=== PATIENT | female | born 1965 | race Caucasian/White ===

== ENCOUNTER 2016-09-21 10:14 | Emergency (ER) | payer MEDICAID, OTHER ==
[~2016-09-21] VITALS: Ht 162.6 cm; Wt 65.0 kg
[~2016-09-21 10:14] MED LIST: ALBUAER3 INH; ASPI325T PO; DEXA2TAB PO; GUAISYP7 PO; IPRA17I INH; IPRASOL INH; LORA10TA PO; VENTAER INH
[2016-09-21 10:16] VITALS: BP 138/68; PULSE 84; RESP 15; TEMP 97.8; O2SAT 96
--- NOTE | 2016-09-21 10:36 | PD ---
HPI . wants duoneb refills Chief Complaint: Medication Refill Request Time Seen by Provider: 10:35 Travel History International Travel<30 days: No Contact w/Intl Traveler<30days: No Traveled to known affect area: No History of Present Illness HPI 51-year-old female with COPD and asthma here requesting refills on her DuoNeb. She tells me that she recently ran out yesterday. She denies any present shortness of breath or coughing. However tells me if she goes home without this medication she knows that she is going to get sick. She denies any fever, chills, chest pain, shortness of breath or respiratory complaints. She is strictly here for refill on duonebs. PFSH Past Medical History Hx Anticoagulant Therapy: Yes (ASPIRIN DAILY) Asthma: Yes Autoimmune Disease: Yes (MTHFR-CLOTTING DISORDER) Blood Disorders: Yes (PT STS THE ABREVIATION IS (MTHFR) FOR HER CLOTTING CONDITION) Diminished Hearing: No Deep Vein Thrombosis: No GERD: Yes Respiratory: Yes (copd asthma) Menopausal: No : 6 Para: 4 Miscarriage: 1 Ovarian Cysts: Yes Tubal Ligation: Yes Past Surgical History Gynecologic Surgery: Yes (CERVICAL BIOPSY-NEG) Other Surgery: Yes (BENIGN TUMOR REMOVED FROM VOCAL CORDS.) Social History Alcohol Use: Yes (X3 PER YEAR) Tobacco Use: Yes (1/2 - 1 PPD) Substance Use: No Allergies-Medications (Allergen,Severity, Reaction): Coded Allergies: TETANUS/DIPHTHERIA TOXOID-ADSORBED (Verified Allergy, Severe, Shortness of Breath, 09/21/16) Uncoded Allergies: ENVIRONMENTAL (Allergy, Severe, 10/18/07) Reported Meds & Prescriptions Reported Meds & Active Scripts Active Duoneb (Ipratropium-Albuterol Neb) 0.5-2.5 Mg/3 Ml Neb 1 Nebule INH Q6HR NEB Atrovent HFA 12.9 GM Inh (Ipratropium [place]) 17 Mcg/Act Aer 2 Puff INH Q6HR PRN Proair Hfa 8.5 GM Inh (Albuterol Sulfate) 90 Mcg/Act Aer 2 Puff INH Q6H PRN 108 mcg/actuation Guaifenesin DM Liq (Guaifenesin-Dextromethorphan Liq) 10-100 Mg/5 Ml Liq 10 Ml PO Q4H PRN Dexamethasone 2 Mg Tab 2 Mg PO BID Reported Allergy (Loratadine) 10 Mg Tab 10 Mg PO DAILY Duoneb (Ipratropium-Albuterol Neb) 0.5-2.5 Mg/3 Ml Neb 1 Nebule INH DAILY Aspirin 325 Mg Tab 325 Mg PO DAILY Ventolin Hfa 18 GM Inh (Albuterol Sulfate) 90 Mcg/Act Aer 2 Puff INH Q4-6H PRN Review of Systems General / Constitutional: No: Fever Eyes: No: Visual changes HENT: No: Headaches Cardiovascular: No: Chest Pain or Discomfort Respiratory: No: Shortness of Breath Gastrointestinal: No: Abdominal Pain Genitourinary: No: Dysuria Musculoskeletal: No: Pain Skin: No Rash Neurologic: No: Weakness Psychiatric: No: Depression Endocrine: No: Polydipsia Hematologic/Lymphatic: No: Easy Bruising Physical Exam Narrative GENERAL: AAO x 3, no acute distress, Well-nourished, well-developed patient. SKIN: Warm and dry. No visible rashes or bruising. HEAD: Normocephalic and atraumatic. EYES: No scleral icterus. No injection or drainage. ENT: No nasal drainage noted. Mucous membranes pink. Airway patent. NECK: Supple, trachea midline. No JVD. CARDIOVASCULAR: Regular rate and rhythm without murmurs, gallops, or rubs. RESPIRATORY: Equally diminished breath sounds bilaterally. Very slight expiratory wheeze. No rhonchi or rales GASTROINTESTINAL: Visual inspection normal EXTREMITIES: No cyanosis or edema. BACK: Nontender without obvious deformity. No CVA tenderness. PSYCH: AAO x 3, normal affect. Data Data Last Documented VS Vital Signs Date Time Temp Pulse Resp B/P Pulse Ox O2 Delivery O2 Flow Rate FiO2 09/21/16 10:16 97.8 84 15 138/68 96 MDM Medical Decision Making Medical Screen Exam Complete: Yes Emergency Medical Condition: Yes Medical Record Reviewed: Yes Differential Diagnosis Medication refill, COPD, less likely COPD exacerbation Narrative Course 51-year-old female here requesting refills on her DuoNeb medication. She has no other complaints. I have provided her with a refill and recommend that she follow-up with her primary care provider for any further refills. Patient verbalized understanding of instructions, questions were answered, and thanked me for their care. I advised them if their condition worsens, please return to the nearest emergency room for further care. Diagnosis Primary Impression: COPD (chronic obstructive pulmonary disease) Qualified Code: J44.9 - Chronic obstructive pulmonary disease, unspecified COPD type Additional Impression: Medication refill Patient Instructions: General Instructions Additional Instructions: Please return to emergency department if your symptoms return or worsen. Follow up with your primary care provider. Take medications as prescribed. Please follow-up with your primary care provider for further refills. Med/Other Pt SpecificInfo: Prescription(s) given Scripts Ipratropium-Albuterol Neb (Duoneb)0.5-2.5 Mg/3 Ml Neb1 Nebule INH Q6HR NEB # 120 NEBULE Ref 0 Prov:Juan Diego Larkin MD 09/21/16 Disposition: 01 DISCHARGE HOME Condition: Stable Yi Ramos September 21, 2016 10:35
[2016-09-21] MEDS ORDERED: IPRASOL INH (10:41)
[2016-09-21] MEDS ORDERED: LORA-520 PO (10:46)
== END 2016-09-21 11:08 | disposition home or self-care (01) ==
LOC: NEPD 10:14
DX: J44.9 Chronic obstructive pulmonary disease, unspecified (principal); F17.200 Nicotine dependence, unspecified, uncomplicated; Z76.0 Encounter for issue of repeat prescription; Z79.82 Long term (current) use of aspirin; Z87.09 Personal history of other diseases of the respiratory system; Z86.2 Personal history of diseases of the blood and blood-forming organs and certain disorders involving the immune mechanism; Z87.19 Personal history of other diseases of the digestive system
CPT/HCPCS: 99281

== ENCOUNTER 2016-09-29 14:38 | Emergency (ER) | payer MEDICAID ==
[~2016-09-29 14:38] MED LIST changes: +LORA-520 PO; -LORA10TA PO
[2016-09-29 14:40] VITALS: BP 131/87; PULSE 88; RESP 16; TEMP 98.8; O2SAT 100
--- NOTE | 2016-09-29 15:18 | PD ---
Physical Exam Time Seen by Provider: 15:16 Narrative 51 y/o female here for evaluation of L ankle/foot pain. Twisted L ankle last night. Vital signs reviewed. Seen at triage desk. Awaiting bed placement. Data Data Last Documented VS Vital Signs Date Time Temp Pulse Resp B/P Pulse Ox O2 Delivery O2 Flow Rate FiO2 09/29/16 14:40 98.8 88 16 131/87 100 Room Air Orders Ankle, Complete ([id number]) (09/29/16 ) [facility] Medical Record Reviewed: Yes Supervised Visit with SAGE: Jesse Wells Sep 29, 2016 15:18
--- NOTE | 2016-09-29 15:47 | RADRPT ---
EXAM DATE/TIME: 09/29/2016 15:28 CORRECTION Corrected on: September 29, 2016; [facility] COMPARISON: No previous studies available for comparison. INDICATIONS : Left ankle pain, fell MEDICAL HISTORY : None. SURGICAL HISTORY : None. ENCOUNTER: Initial ACUITY: 2 days PAIN SCORE: 4/10 LOCATION: Left Left FINDINGS: There is soft tissue swelling lateral malleolus without fracture. Alignment is anatomic. CONCLUSION: Soft tissue swelling lateral malleolus with out fracture. Curry Sanchez MD FACR on September 29, 2016 at 15:45 Board Certified Radiologist. This report was verified electronically. Curry Sanchez MD FACR on September 29, 2016 at 16:01 Board Certified Radiologist. This report was verified electronically.
--- NOTE | 2016-09-29 15:50 | RADRPT ---
EXAM DATE/TIME: 09/29/2016 15:29 [facility] COMPARISON: No previous studies available for comparison. INDICATIONS : Pain and swelling left foot, fell MEDICAL HISTORY : None. SURGICAL HISTORY : None. ENCOUNTER: Initial ACUITY: 2 days PAIN SCORE: 8/10 LOCATION: Left Foot FINDINGS: There is soft tissue swelling lateral foot without fracture or radiopaque foreign body. CONCLUSION: Soft tissue swelling, negative for fracture. Curry Sanchez MD FACR on September 29, 2016 at 15:47 Board Certified Radiologist. This report was verified electronically.
--- NOTE | 2016-09-29 15:57 | PD ---
HPI Chief Complaint: Injury Time Seen by Provider: 15:57 Travel History International Travel<30 days: No Contact w/Intl Traveler<30days: No Traveled to known affect area: No History of Present Illness HPI 51-year-old female presents to the emergency Department with complaint of left ankle and foot pain after stepping down a step and her ankle twisting and affect incontinence step. She did fall but denies hitting her head loss of consciousness. Denies neck pain or back pain. Denies paresthesias, loss of sensation, decreased strength to the affected extremity. Has been ambulatory on the affected extremity. Has tried icing and elevating it. Has not taken any medications to alleviate her symptoms. Has no other medical complaints. Allergies to tetanus. No other modifying factors or associated signs and symptoms. PFSH Past Medical History Hx Anticoagulant Therapy: Yes (ASPIRIN DAILY) Asthma: Yes Autoimmune Disease: Yes (MTHFR-CLOTTING DISORDER) Blood Disorders: Yes (PT STS THE ABREVIATION IS (MTHFR) FOR HER CLOTTING CONDITION) Diminished Hearing: No Deep Vein Thrombosis: No GERD: Yes Respiratory: Yes (copd asthma) Influenza Vaccination: No ?: Not LMP: EARLY AUGUST 2016 Menopausal: No : 6 Para: 4 Miscarriage: 1 Ovarian Cysts: Yes Tubal Ligation: Yes Past Surgical History Gynecologic Surgery: Yes (CERVICAL BIOPSY-NEG) Other Surgery: Yes (BENIGN TUMOR REMOVED FROM VOCAL CORDS.) Social History Alcohol Use: Yes (2X PER WEEK) Tobacco Use: Yes (1/2 - 1 PPD) Substance Use: No Allergies-Medications (Allergen,Severity, Reaction): Coded Allergies: TETANUS/DIPHTHERIA TOXOID-ADSORBED (Verified Allergy, Severe, Shortness of Breath, 09/29/16) Uncoded Allergies: ENVIRONMENTAL (Allergy, Severe, 10/18/07) Reported Meds & Prescriptions Reported Meds & Active Scripts Active Duoneb (Ipratropium-Albuterol Neb) 0.5-2.5 Mg/3 Ml Neb 1 Nebule INH Q6HR NEB Atrovent HFA 12.9 GM Inh (Ipratropium [place]) 17 Mcg/Act Aer 2 Puff INH Q6HR PRN Proair Hfa 8.5 GM Inh (Albuterol Sulfate) 90 Mcg/Act Aer 2 Puff INH Q6H PRN 108 mcg/actuation Guaifenesin DM Liq (Guaifenesin-Dextromethorphan Liq) 10-100 Mg/5 Ml Liq 10 Ml PO Q4H PRN Dexamethasone 2 Mg Tab 2 Mg PO BID Reported Allergy (Loratadine) 10 Mg Tab 10 Mg PO DAILY Duoneb (Ipratropium-Albuterol Neb) 0.5-2.5 Mg/3 Ml Neb 1 Nebule INH DAILY Aspirin 325 Mg Tab 325 Mg PO DAILY Ventolin Hfa 18 GM Inh (Albuterol Sulfate) 90 Mcg/Act Aer 2 Puff INH Q4-6H PRN Review of Systems Except as stated in HPI: all other systems reviewed are Neg Physical Exam Narrative GENERAL: Well-nourished, well-developed female patient, in no acute distress SKIN: Warm and dry. HEAD: Atraumatic. Normocephalic. EYES: Pupils equal and round. No scleral icterus. No injection or drainage. ENT: Mucosa pink and moist. Airway patent. NECK: Trachea midline. CARDIOVASCULAR: Regular rate. RESPIRATORY: No accessory muscle use. GASTROINTESTINAL: Rounded. MUSCULOSKELETAL: Left ankle with tenderness and edema noted to the lateral malleolar zone; area with ecchymosis; without erythema; no obvious deformity. Left fourth toe with mild edema and ecchymosis noted to the toe and metatarsal area; with tenderness on palpation; no obvious deformity. Left lower extremity is supple and non-tense with 2+ pedal pulses and sensory intact. No obvious deformities. No clubbing. No cyanosis. No edema. NEUROLOGICAL: Awake and alert. Oriented 3. No obvious cranial nerve deficits. Motor grossly within normal limits. Normal speech. PSYCHIATRIC: Appropriate mood and affect; insight and judgment normal. Data Data Last Documented VS Vital Signs Date Time Temp Pulse Resp B/P Pulse Ox O2 Delivery O2 Flow Rate FiO2 09/29/16 14:40 98.8 88 16 131/87 100 Room Air Orders Ankle, Complete ([id number]) (09/29/16 ) Foot, Complete ([id number]) (09/29/16 ) Crutches (09/29/16 15:56) Ibuprofen (Motrin) (09/29/16 16:00) MDM Medical Decision Making Medical Screen Exam Complete: Yes Emergency Medical Condition: Yes Medical Record Reviewed: Yes Differential Diagnosis Ankle sprain, ankle fracture, foot sprain, foot fracture, toe fracture Narrative Course 51-year-old female with left ankle and foot injury after mechanical fall. Denies hitting her head or loss of consciousness. Denies neck pain or back pain. Left ankle and foot x-ray ordered in triage. Ibuprofen and crutches ordered. 1605: Left foot and ankle x-ray with no acute findings. Ankle stirrup splint and Devan bandage applied for support. Crutches provided for support. Ibuprofen prescribed for home. Patient verbalizes understanding and agreement with treatment plan. Patient is medically cleared and stable for discharge. Discussed reasons to return to the emergency department. Instructed patient to follow up with primary care provider. Patient agrees with treatment plan. The patients vital signs are stable and the patient is stable for outpatient follow- up and treatment. Patient discharged home, stable and in no acute distress. Diagnosis Primary Impression: Left ankle injury Qualified Code: S99.912A - Left ankle injury, initial encounter Additional Impression: Injury of left foot Qualified Code: S99.922A - Injury of left foot, initial encounter Referrals: Primary Care Physician Patient Instructions: Crutch Instructions (ED), General Instructions Departure Forms: Tests/Procedures, Work Release Enter return to work date: Oct 06, 2016 Additional Instructions: Tylenol or ibuprofen as directed and as needed for pain and inflammation Rest, ice, compress, and elevate extremity to decrease pain and inflammation Ankle Brace for support Crutches for support Avoid aggravating activity; increase activity as tolerated Follow-up with primary care provider Return to the emergency department immediately with worsening of symptoms Med/Other Pt SpecificInfo: Prescription(s) given Scripts Ibuprofen 600 Mg [id number] Mg PO Q6H PRN (PAIN) #30 TAB Ref 0 Prov:Rasheeda Fuchs 09/29/16 Disposition: 01 DISCHARGE HOME Condition: Stable Rasheeda Fuchs Sep 29, 2016 15:57
[2016-09-29] MEDS ORDERED: IBUPROFEN 800 MG TAB PO ONE (16:00)
[2016-09-29] MEDS ORDERED: IBUP-232 PO (16:03)
== END 2016-09-29 16:28 | disposition home or self-care (01) ==
LOC: NEPK 14:38
DX: S99.912A Unspecified injury of left ankle, initial encounter (principal); S99.922A Unspecified injury of left foot, initial encounter; F17.210 Nicotine dependence, cigarettes, uncomplicated; Z79.82 Long term (current) use of aspirin; X50.1XXA Overexertion from prolonged static or awkward postures, initial encounter
CPT/HCPCS: 73610; 73630; 99283; E0113; L1906